=== PATIENT | male | born 1995 | race Caucasian/White ===

== ENCOUNTER 2017-05-24 16:16 | Emergency (ER) | payer OTHER ==
[2017-05-24 16:42] LABS: BASOPHILS # (AUTO) 0.1 10^3/uL (0.0-0.1); BASOPHILS % (AUTO) 0.8 %; HGB - HEMOGLOBIN 14.6 g/dL (14.0-18.0); LYMPHOCYTES # (AUTO) 1.1 10^3/uL (1.5-3.5); MEAN CORPUSCULAR HEMOGLOBIN 31.2 pg (27.0-31.0); MEAN CORPUSCULAR HGB CONC 33.5 g/dL (32.0-36.0); MEAN CORPUSCULAR VOLUME 93.2 fL (80.0-94.0); MEAN PLATELET VOLUME 7.4 fL (7.4-11.4); MONOCYTES # (AUTO) 1.4 10^3/uL (0.0-1.0); MONOCYTES % (AUTO) 13.8 %; NEUTROPHILS # (AUTO) 7.7 10^3/uL (1.5-6.6); NEUTROPHILS % (AUTO) 74.4 %; PLT - PLATELET COUNT 189 10^3/uL (130-450); RED BLOOD COUNT 4.69 10^6/uL (4.70-6.10); RED CELL DISTRIBUTION WIDTH 12.6 % (12.0-15.0); WHITE BLOOD COUNT 10.4 x10^3/uL (4.8-10.8)
[2017-05-24 16:56] LABS: ALBUMIN 4.1 g/dL (3.2-5.5); ALBUMIN/GLOBULIN RATIO 1.1 (1.0-2.2); BILIRUBIN,TOTAL 0.8 mg/dL (0.2-1.0); CALCIUM 8.8 mg/dL (8.5-10.3); CREATININE 1.1 mg/dL (0.6-1.2); TOTAL PROTEIN 7.7 g/dL (6.7-8.2)
--- NOTE | 2017-05-24 17:00 | ED Physician Documentation ---
History of Present Illness - Stated complaint Stated Complaint: POSS MONO - Chief complaint Chief Complaint: General - History obtained from History obtained from: Patient - History of Present Illness Timing: How many days ago (3 days) Pain level max: 8 Pain level now: 6 Improved by: nothing Worsened by: swallowing - Additonal information Additional information: Headache, nausea, no vomiting. Has felt fatigued. Has sore throat. Possible fever. Negative rapid strep and negative mono aboard the ship. States that there was swelling in the abdomen as well. Possible splenomegaly per [employer]. Patient also states that he had a recent "risky" sexual encounter and became sick shortly after that encounter. Review of Systems Ten Systems: 10 systems reviewed and negative Constitutional: reports: Fever Ears: denies: Ear pain Nose: denies: Rhinorrhea / runny nose, Congestion Throat: reports: Sore throat GI: reports: Nausea. denies: Vomiting Skin: denies: Rash Musculoskeletal: denies: Back pain Neurologic: denies: Focal weakness, Numbness PD PAST MEDICAL HISTORY - Past Medical History Past Medical History: No - Past Surgical History Past Surgical History: No - Present Medications Home Medications: Ambulatory Orders Medication Instructions Recorded Confirmed Doxycycline Hyclate 100 mg PO BID #20 tablet 05/24/17 predniSONE [Prednisone] 40 mg PO DAILY #10 tablet 05/24/17 - Allergies Allergies/Adverse Reactions: Allergies Allergy/AdvReac Type Severity Reaction Status Date / Time No Known Drug Allergies Allergy Verified 05/24/17 16:22 - Social History Does the pt smoke?: No Smoking Status: Never smoker Does the pt drink ETOH?: No Does the pt have substance abuse?: No - Immunizations Immunizations are current?: Yes PD ED PE NORMAL - Vitals Vital signs reviewed: Yes - General General: Alert and oriented X 3, No acute distress - HEENT HEENT: PERRL, Ears normal, Moist mucous membranes, Other (posterior oropharyngeal erythema with B tonsillar exudates and tonsillar swelling. no trismus. normal phonation. uvula midline) - Neck Neck: Supple, no meningeal sign (FROM without pain.), Other (shotty anterior and posterior cervical LAD.) - Cardiac Cardiac: RRR, Strong equal pulses - Respiratory Respiratory: No respiratory distress, Clear bilaterally - Abdomen Abdomen: Soft, Non tender, Non distended, No organomegaly (no splenomegaly or hepatomegaly) - Back Back: No CVA TTP, No spinal TTP (no tenderness to palpation or percussion) - Derm Derm: Warm and dry, No rash - Extremities Extremities: No edema - Neuro Neuro: Alert and oriented X 3, No motor deficit, No sensory deficit - Psych Psych: Normal mood, Normal affect Results - Vitals Vitals: Vital Signs - 24 hr 05/24/17 05/24/17 18:04 18:50 Temperature 38.1 C H 36.9 C Heart Rate 101 H 100 Respiratory 17 20 Rate Blood Pressure 111/65 109/59 L O2 Saturation 100 98 Oxygen O2 Source Room air - Labs Labs: Microbiology 05/24/17 17:34 Group A Strep Throat Culture - Preliminary Throat CULTURE IN PROGRESS. RESULTS TO FOLLOW. Laboratory Tests 05/24/17 05/24/17 05/24/17 16:36 16:36 16:36 WBC 10.4 RBC 4.69 L Hgb 14.6 Hct 43.7 MCV 93.2 MCH 31.2 H MCHC 33.5 RDW 12.6 Plt Count 189 MPV 7.4 Neut # 7.7 H Lymph # 1.1 L [place] # 1.4 H Eos # 0.0 Baso # 0.1 Absolute Nucleated RBC 0.00 Nucleated RBC % 0.0 Sodium 135 Potassium 4.1 Chloride 98 L Carbon Dioxide 26 Anion Gap 11.0 BUN 17 Creatinine 1.1 Estimated GFR (MDRD) 83 L Glucose 97 Calcium 8.8 Total Bilirubin 0.8 AST 23 ALT 22 Alkaline Phosphatase 53 Total Protein 7.7 Albumin 4.1 Globulin 3.6 Albumin/Globulin Ratio 1.1 Lipase 15 L Infectious [place] Assay NEGATIVE Group A Strep Rapid 05/24/17 17:34 WBC RBC Hgb Hct MCV MCH MCHC RDW Plt Count MPV Neut # Lymph # [place] # Eos # Baso # Absolute Nucleated RBC Nucleated RBC % Sodium Potassium Chloride Carbon Dioxide Anion Gap BUN Creatinine Estimated GFR (MDRD) Glucose Calcium Total Bilirubin AST ALT Alkaline Phosphatase Total Protein Albumin Globulin Albumin/Globulin Ratio Lipase Infectious [place] Assay Group A Strep Rapid Negative PD MEDICAL DECISION MAKING - ED course Complexity details: reviewed results, re-evaluated patient, considered differential, d/w patient ED course: Patient is a 22-year-old male who presents to the emergency department with what appears to be pharyngitis. Monospot is negative. No organomegaly. No hepatosplenomegaly. Abdomen is soft, nontender nondistended. Symptoms started after a risky sexual encounter, possible gonorrhea or chlamydia infection in the throat? Will treat with Rocephin and doxycycline and see how he progresses. He does not appear septic. Feels better after IV fluids. Tolerating p.o. without difficulty. Also given dexamethasone for the pharyngeal swelling. Gonorrhea and Chlamydia tests were sent after swabs performed of the throat. We will continue the antibiotics at home and follow- up closely with his doctor. Patient counseled regarding signs and symptoms for which I believe and urgent re-evaluation would be necessary. Patient with good understanding of and agreement to plan and is comfortable going home at this time This document was made in part using voice recognition software. While efforts are made to proofread this document, sound alike and grammatical errors may occur. Departure - Departure Disposition: 01 Home, Self Care Clinical Impression: Pharyngitis Qualifiers: Pharyngitis/tonsillitis etiology: unspecified etiology Qualified Code(s): J02.9 - Acute pharyngitis, unspecified Condition: Good Instructions: ED Strep Pharyngitis Poss Follow-Up: your,doctor in 3 days. [Other] Prescriptions: Doxycycline Hyclate 100 mg PO BID #20 tablet predniSONE [Prednisone] 40 mg PO DAILY #10 tablet Comments: Return if you worsen. Drink plenty of fluids and rest. Discharge Date/Time: 05/24/17 19:03
[2017-05-24] MEDS ORDERED: SODIUM CHLORIDE 0.9% 1,000 ML IV ONE (17:02)
[2017-05-24] MEDS ORDERED: KETOROLAC 60 MG/2 ML VIAL IVP STA (17:02)
[2017-05-24] MEDS ORDERED: DEXAMETHASONE 10 MG/ML VIAL IVP STA (17:02)
[2017-05-24] MEDS ORDERED: cefTRIAXone 1 GM VIAL IVP STA (17:11)
[2017-05-24] MEDS ORDERED: DEXAMETHASONE 10 MG/ML VIAL ONE (18:10)
[2017-05-24] MEDS ORDERED: ACETAMINOPHEN 325 MG TABLET PO STA (18:10)
[2017-05-24 18:50] VITALS: BP 109/59
== END 2017-05-24 19:03 | disposition home or self-care (01) ==
LOC: ED 16:16
DX: J02.9 Acute pharyngitis, unspecified (principal)
CPT/HCPCS: 36415; 80053; 83690; 85025; 86308; 87070; 87430; 87491; 96361; 96374; 96375; 99283; 99284; A9270